=== PATIENT | female | born 1995 | race Asian ===

== ENCOUNTER 2016-03-25 22:29 | Emergency (ER) | payer MEDICAID ==
[~2016-03-25] VITALS: Ht 160 cm; Wt 54.4 kg
[2016-03-25 22:41] VITALS: BP 127/78
[2016-03-25] MEDS ORDERED: VALACYCLOVIR500 MG ORAL (23:11)
[2016-03-25] MEDS ORDERED: IBUPROFEN600 MG ORAL (23:11)
--- NOTE | 2016-03-25 23:12 | Emergency Room Report ---
History of Present Illness General Chief Complaint: General Complaint Source: Patient Present Illness [facility] This is a 20-year-old female with no past medical history. She presents with the chief when a rash on her lip and fever. Yesterday she felt tingling and burning sensation in her lips. Today she has blister broke out mostly in the upper lip and also in the lower lip. Tonight had a fever. Mild throat pain. Denies any trauma. Denies any nausea vomiting. No cough or congestion. Denies any other complaint. Allergies: Coded Allergies: No Known Allergies (Unverified , 03/25/16) Patient History Past Medical History: none Past Surgical History: none Pertinent Family History: none Social History: Denies: smoking Last Menstrual Period: 03/18/16 Now: No Immunizations: UTD Reviewed Nursing Documentation: PMH: Agreed, PSxH: Agreed Nursing Documentation-PMH Past Medical History: No Stated History Review of Systems Constitutional: Reports: fever Eye: Denies: blurred vision, eye pain ENT: Reports: throat pain Respiratory: Denies: cough, shortness of breath Cardiovascular: Denies: chest pain, palpitations Gastrointestinal: Denies: abdominal pain, diarrhea, nausea, vomiting Musculoskeletal: Denies: back pain, joint pain Skin: Denies: rash Neurological: Denies: headache, numbness Endocrine: Denies: increased thirst, increased urine Hematologic/Lymphatic: Denies: easy bruising All Other Systems: negative except mentioned in HPI Physical Exam Vital Signs Date Time Temp Pulse Resp B/P Pulse Ox O2 Delivery O2 Flow Rate FiO2 03/25/16 22:34 100.0 109 17 127/78 98 Room Air vitals with a fever Sp02 EP Interpretation: reviewed, normal General Appearance: well appearing, no apparent distress, alert Head: normocephalic, atraumatic Eyes: bilateral eye EOMI, bilateral eye PERRL ENT: hearing grossly normal, other - Specifically lesion on the upper and lower lips. She has scatter were lesion on her soft palate. Neck: full range of motion, supple, no meningismus Respiratory: chest non-tender, lungs clear, normal breath sounds Cardiovascular #1: regular rate, rhythm, no murmur Gastrointestinal: normal bowel sounds, non tender, no mass, no organomegaly, no bruit, non-distended Musculoskeletal: back normal, gait/station normal, normal range of motion Psychiatric: mood/affect normal Skin: warm/dry Medical Decision Making Diagnostic Impression: Primary Impression: Stomatitis and mucositis, unspecified ER Course Patient presents with a stomatitis. Most likely viral/herpes in nature. We'll treat symptomatically. No evidence of bacterial infection. No evidence of trismus. We'll discharge home. Last Vital Signs Date Time Temp Pulse Resp B/P Pulse Ox O2 Delivery O2 Flow Rate FiO2 03/25/16 22:41 100.0 114 17 127/78 98 Room Air Status: improved Disposition: HOME, SELF-CARE Condition: Stable Scripts Valacyclovir Hcl* (VALTREX*) 500 Mg Tablet 1000 MG ORAL TWICE A DAY, #10 TAB Prov: GIOVANA DAWN M.D. 03/25/16 Ibuprofen* (MOTRIN*) 600 Mg Tablet 600 MG ORAL THREE TIMES A DAY, #30 TAB 0 Refills Prov: GIOVANA DAWN M.D. 03/25/16 Additional Instructions: Followup with your Dr. in 2-3 days. Return if symptom worsen. Increase fluid. GIOVANA DAWN M.D. Mar 25, 2016 23:12
[2016-03-25 23:25] VITALS: BP 127/78
== END 2016-03-25 23:25 | disposition home or self-care (01) ==
LOC: EMR 22:52
DX: K12.1 Other forms of stomatitis (principal); K12.30 Oral mucositis (ulcerative), unspecified
CPT/HCPCS: 99282